=== PATIENT | male | born 1955 | race Caucasian/White ===

== ENCOUNTER 2024-07-25 09:00 | Day surgery (SDC) | payer BC, MEDICARE ==
[2024-07-25 10:00] LABS: Mean Platelet Volume 7.3; Platelet Count 152 k/uL (150-450)
[2024-07-25 10:53] VITALS: RESP 18
--- NOTE | 2024-07-25 11:58 | XR ---
EXAMINATION TYPE: XR chest 1V portable DATE OF EXAM: 07/25/2024 Comparison: 07/10/2024 Clinical History: 68 year-old male status post thoracentesis, left-sided pleural effusion Findings: Left heart margin remains partially obscured by adjacent pleural parenchymal opacity. There is residu al moderate left pleural effusion extending nearly up to the midlung level. Overall appearance is sim ilar back to 07/10/2024. We do not have a radiograph immediately prior to the thoracentesis. No apprec iable pneumothorax. Some strandy atelectasis at the right base. Impression: Following left-sided thoracentesis, there is a residual moderate left pleural effusion reaching nearl y to the mid chest level, similar appearance compared to 07/10/2024. We do not have a radiograph of th e effusion immediately prior to the thoracentesis. Serial thoracentesis may be needed. No appreciable pneumothorax. [facility], , 07/25/2024 11:55 AM
--- NOTE | 2024-07-25 15:34 | US ---
EXAMINATION TYPE: US thoracentesis, diagnostic and therapeutic DATE OF EXAM: 07/25/2024 CLINICAL HISTORY: 68-year-old male with shortness of breath and left pleural effusion. G90, C61, pros [place] cancer. Referred for left-sided thoracentesis. The procedure was discussed with the patient. The risks, complications, benefits, and alternatives we re discussed and any questions were answered. Informed consent was obtained. The patient was placed u pright at the site of the stricture and the posterior lower left hemithorax is imaged. The patient is prepped and draped in the usual sterile fashion. All elements of maximal barrier technique were utilized. Ultrasound was utilized to determine the precise skin entry site along the left lower hemithorax. Utilizing trocar technique and a 6 [place] safety centesis catheter system, access into the pleural ef fusion was obtained. We stopped suction after a total of 1.2 L of clear tamera fluid was aspirated. An initial sample was l abeled and sent for laboratory analysis. Catheter was removed, hemostasis obtained, and a dressing placed. The patient was stable throughout the procedure and remained stable upon discharge from Department of Radiology. IMPRESSION: Successful diagnostic and therapeutic thoracentesis with ultrasound guidance. Aspiration was stopped at 1.2 L in order to avoid complications. If the subsequent chest x-ray shows considerable residual f luid, the patient may need serial thoracentesis. Laboratory analysis pending. [facility], , 07/25/2024 3:32 PM
[2024-07-25 16:36] VITALS: BP 138/62; PULSE 74
[2024-07-25 17:06] LABS: Appearance,BF Hazy (Clear)
[2024-07-25 19:49] LABS: Glucose, BF Source Pleural Fluid; Glucose, Body Fluid 157 mg/dL; LDH, Body Fluid Source Pleural Fluid; T. Protein, Body Fluid Source Pleural Fluid; Total Protein, Body Fluid >3600 mg/dL
== END 2024-07-25 12:20 | disposition home or self-care (01) ==
LOC: RADPROMAIN 09:00
PROVIDERS: ATTEND Internal Medicine
CPT/HCPCS: 32555; 36415; 71045; 82945; 83615; 84157; 85049; 85610; 87070; 87075; 87116; 87205; 87206; 88108; 88305; 89050

== ENCOUNTER 2024-08-26 07:35 | Day surgery (SDC) | payer MEDICARE ==
[2024-08-26 08:41] VITALS: RESP 12
[2024-08-26 08:42] VITALS: TEMP 98.1
[2024-08-26 08:51] LABS: Mean Platelet Volume 7.3; Platelet Count 165 k/uL (150-450)
[2024-08-26 08:58] LABS: Prothrombin Time 10.7 sec (10.0-12.5)
[2024-08-26 09:42] VITALS: BP 98/65; PULSE 94
--- NOTE | 2024-08-26 10:03 | XR ---
EXAMINATION TYPE: XR chest 1V portable DATE OF EXAM: 08/26/2024 9:58 AM COMPARISON: 08/25/2024 CLINICAL INDICATION: Male, 68 years old with history of post thoracentesis; [facility] TECHNIQUE: XR chest 1V portable Frontal view of the chest. FINDINGS: Lungs/Pleura: There is no evidence of pleural effusion, focal consolidation, or pneumothorax. Pulmonary vascularity: Unremarkable. Heart/mediastinum: Cardiomediastinal silhouette is unremarkable. Musculoskeletal: No acute osseous pathology. Other findings: None Lines/Tubes: IMPRESSION: No acute cardiopulmonary disease/process. [facility], , 08/26/2024 10:01 AM
--- NOTE | 2024-08-26 10:30 | US ---
EXAMINATION TYPE: US thoracentesis DATE OF EXAM: 08/26/2024 9:52 AM COMPARISON: 07/25/2024 CLINICAL INDICATION:Male, 68 years old with history of J90 PLEURAL EFFUSION, NOT ELSEWHERE CLASSIFIED ; PROCEDURE: Informed consent was obtained. The risks of the procedure were extensively explained incl uding risk of pneumothorax and need for chest tube placement. Procedure was performed in the Ultraso und procedure suite. Ultrasound imaging of the chest demonstrates left pleural effusion. An appropr iate access site was localized to the posterior left pleural space. Timeout was taken per protocol. The skin was prepped and draped in the usual sterile fashion and then locally anesthetized with 1% li docaine. The pleural cavity was then accessed via a 5-Congolese one-step needle/catheter. Approximatel y 1200 mL of clear straw-colored fluid was obtained. Samples were sent to the lab for analysis. Post procedural imaging of the chest demonstrate a decreased amount of pleural fluid. Patient tolerated procedure well without immediate complication. Hemostasis at the procedural site w as obtained with a sterile bandage placed. Immediate following the procedure, an inspiratory and expi ratory chest x-ray was reviewed. No post procedure pneumothorax was identified. The patient was monit ored in the holding area for approximately one hour following the procedure and was subsequently disc harged in stable condition. IMPRESSION: Ultrasound guided thoracentesis, with approximately 1200 mL of clear straw-colored fluid drained. Pathology results pending. No immediate complications were evident. [facility], , 08/26/2024 10:28 AM
[2024-08-26 19:56] LABS: Total Protein 7.5 g/dL (6.3-8.2)
[2024-08-27 05:52] LABS: Appearance,BF Cloudy (Clear)
[2024-08-27 05:54] LABS: Glucose, BF Source Pleural Fluid; Glucose, Body Fluid 187 mg/dL; LDH, Body Fluid Source Pleural Fluid; T. Protein, Body Fluid Source Pleural Fluid; Total Protein, Body Fluid >3600 mg/dL
== END 2024-08-26 10:05 | disposition home or self-care (01) ==
LOC: RADPROMAIN 07:35
PROVIDERS: ATTEND Internal Medicine
DX: J90 Pleural effusion, not elsewhere classified (principal); J44.9 Chronic obstructive pulmonary disease, unspecified; J96.11 Chronic respiratory failure with hypoxia; J98.4 Other disorders of lung; E11.9 Type 2 diabetes mellitus without complications; E66.01 Morbid (severe) obesity due to excess calories; M15.9 Polyosteoarthritis, unspecified; M50.30 Other cervical disc degeneration, unspecified cervical region; Z79.899 Other long term (current) drug therapy; Z79.51 Long term (current) use of inhaled steroids; Z79.84 Long term (current) use of oral hypoglycemic drugs; Z79.4 Long term (current) use of insulin; Z90.49 Acquired absence of other specified parts of digestive tract; Z98.890 Other specified postprocedural states; Z90.89 Acquired absence of other organs; Z87.891 Personal history of nicotine dependence
CPT/HCPCS: 32555; 71045; 82945; 82947; 83615; 84155; 84157; 85049; 85610; 87070; 87075; 87116; 87205; 87206; 88108; 88305; 89050

== ENCOUNTER 2024-10-03 07:53 | Day surgery (SDC) | payer MEDICARE ==
[2024-10-03 08:59] LABS: Mean Platelet Volume 7.3; Platelet Count 199 k/uL (150-450)
[2024-10-03 09:05] LABS: Prothrombin Time 11.5 sec (10.0-12.5)
[2024-10-03 10:01] VITALS: TEMP 98.1
--- NOTE | 2024-10-03 10:46 | XR ---
EXAMINATION TYPE: XR chest 1V portable DATE OF EXAM: 10/03/2024 10:19 AM COMPARISON: Chest radiographs from 08/26/2024 CLINICAL INDICATION: Male, 68 years old with history of left Thoracentesis; pain TECHNIQUE: XR chest 1V portable Frontal view of the chest. FINDINGS: Lungs/Pleura: Blunting of the left costophrenic angle has decreased from prior. There is no evidence of right pleural effusion, focal consolidation, or pneumothorax. Pulmonary vascularity: Unremarkable. Heart/mediastinum: Cardiomediastinal silhouette is unremarkable. Musculoskeletal: No acute osseous pathology. Other findings: None IMPRESSION: Left pleural effusion without evidence for pneumothorax, No acute cardiopulmonary disease/process. [facility], , 10/03/2024 10:44 AM
--- NOTE | 2024-10-03 12:01 | US ---
EXAMINATION TYPE: US thoracentesis DATE OF EXAM: 10/03/2024 10:02 AM COMPARISON: CLINICAL INDICATION:Male, 68 years old with history of J90 PLEURAL EFFUSION, NOT ELSEWHERE CLASSIFIED ; PROCEDURE: Informed consent was obtained. The risks of the procedure were extensively explained incl uding risk of pneumothorax and need for chest tube placement. Procedure was performed in the Ultraso und procedure suite. Ultrasound imaging of the chest demonstrates left pleural effusion. An appropr iate access site was localized to the posterior left pleural space. Timeout was taken per protocol. The skin was prepped and draped in the usual sterile fashion and then locally anesthetized with 1% li docaine. The pleural cavity was then accessed via a 5-[place] one-step needle/catheter. Approximatel y 1200 mL of red colored fluid was obtained. Samples were sent to the lab for analysis. Postprocedura l imaging of the chest demonstrate a decreased amount of pleural fluid. Patient tolerated procedure well without immediate complication. Hemostasis at the procedural site w as obtained with a sterile bandage placed. Immediate following the procedure, an inspiratory and expi ratory chest x-ray was reviewed. No post procedure pneumothorax was identified. The patient was monit ored in the holding area for approximately one hour following the procedure and was subsequently disc harged in stable condition. IMPRESSION: Ultrasound guided thoracentesis, with approximately 1200 mL of red colored fluid drained . Pathology results pending. No immediate complications were evident. [facility], , 10/03/2024 11:59 AM
[2024-10-03 17:33] VITALS: BP 138/78; PULSE 92; RESP 18
[2024-10-03 19:31] LABS: Glucose, BF Source Pleural Fluid; Glucose, Body Fluid 193 mg/dL; LDH, Body Fluid Source Pleural Fluid; T. Protein, Body Fluid Source Pleural Fluid; Total Protein, Body Fluid >3600 mg/dL
[2024-10-03 21:38] LABS: Appearance,BF Blood Tinged (Clear)
== END 2024-10-03 11:20 | disposition home or self-care (01) ==
LOC: RADPROMAIN 07:53
PROVIDERS: ATTEND Internal Medicine
DX: J90 Pleural effusion, not elsewhere classified (principal)
CPT/HCPCS: 32555; 36415; 71045; 82945; 82947; 83615; 84157; 85049; 85610; 87070; 87075; 87116; 87205; 87206; 88108; 88305; 88341; 88342; 89050

== ENCOUNTER → 2024-10-06 | Outpatient (CLI) | payer MEDICARE ==
[2024-10-06 10:12] LABS: African American GFR (CKD) 74 (>60 ml/min/1.73 sqM); Blood Urea Nitrogen 25 mg/dL (9-20); Non-African American GFR(CKD) 64 (>60 ml/min/1.73 sqM)
--- NOTE | 2024-10-06 10:48 | CT ---
EXAMINATION TYPE: CT chest w con CT DLP: 741.0 mGycm, Automated exposure control for dose reduction was used. DATE OF EXAM: 10/06/2024 10:35 AM COMPARISON: Chest radiograph 10/03/2024 CLINICAL INDICATION:Male, 68 years old with history of J90 PLEURAL EFFUSION; PHH, pleuralis effusion TECHNIQUE: Multiple axial images were obtained through the chest following the administration of 100 cc of Isovue 300. . Coronal and sagittal reformats reviewed. FINDINGS: LUNGS/ PLEURA: No right-sided pleural effusion. Mild centrilobular emphysematous images changes. Patc hy reticular groundglass opacities within the right lung. This is most prominent within the right low er lobe. Loculated pleural effusion involving the left major fissure. Additional left lower lung sma ll pleural effusion with adjacent atelectatic change. No pneumothorax. No pulmonary mass. AIRWAY: Patent and unremarkable.. HEART: Size within normal limits.Trace pericardial effusion. Mild coronary arterial calcifications. MEDIASTINUM: Couple of mildly enlarged mediastinal lymph nodes measuring up to 1.3 cm short axis (ser ies 3, image 36). VASCULATURE: No aortic aneurysm. Atherosclerotic calcification of the aorta and its branches. MUSCULOSKELETAL: Mild disc degeneration changes are present throughout the thoracolumbar spine. No ac tlingit & haida osseous abnormality. SOFT TISSUES/LYMPH NODES: Unremarkable. LOWER NECK: No significant findings. UPPER ABDOMEN: The gallbladder is surgically absent. IMPRESSION: 1. Small left pleural effusion with associated atelectasis. Additional loculated effusion within the left major fissure. 2. Patchy groundglass opacities throughout the right lung and most prominently within the right lower lobe concerning for possible pneumonia. 3. Couple of mildly enlarged mediastinal lymph nodes likely reactive #2. 4. Mild COPD changes. [facility], , 10/06/2024 10:46 AM
== END | disposition home or self-care (01) ==
LOC: RADCTMAIN 09:22
PROVIDERS: ATTEND Internal Medicine
DX: J44.9 Chronic obstructive pulmonary disease, unspecified (principal); J90 Pleural effusion, not elsewhere classified; R59.0 Localized enlarged lymph nodes
CPT/HCPCS: 82565; 84520; 71260; 36415; Q9967